=== PATIENT | male | born 1975 | race Caucasian/White ===

== ENCOUNTER 2021-12-21 01:05 | Day surgery (SDC) | payer OTHER, SELFPAY ==
[2021-12-08 13:49] VITALS: BMI 32.1
--- NOTE | 2021-12-20 11:29 | PM.HPGS ---
History of Present Illness History of Present Illness Consent: Risks, benefits, and alternatives have been discussed and questions answered. Patient agrees to proceed with procedure. Chief complaint: family hx of colon ca, neoplasm screening Narrative: Rom Gonzáles is a 46 year old male referred for colon cancer screening. He has a family history of colon cancer in his mother. Review of Systems Review of Systems: All systems reviewed & are unremarkable except as noted in HPI and below PMFSH Past Medical History Medical History Allergies Cervicalgia Depression Erectile dysfunction Essential (primary) hypertension Hearing loss History of chicken pox Hypercholesterolemia Family History Family History Sibling Patient's sister is in good health Patient's brother is in good health Mother Carcinoma of colon Father Hypertension Social History Social History Smoking packs per day: 0.5 Smoking cigarettes per day: 10.0 Years smoked: 4 Smoking pack-years: 2.00 Smoking status: Former smoker Tobacco type: cigarettes Smoking end date: 11/18/96 Alcohol intake: current Drinks per week: 2 Substance use: current Substance use type: marijuana Other substance usage details: marijuana daily Living arrangements: with family Spiritual care concerns: No Meds Home Medications and Allergies Home Medications Medication Instructions Recorded Confirmed Type escitalopram oxalate 10 mg tablet 10 mg PO DAILY #30 tablet 11/23/21 12/08/21 Rx sildenafil 50 mg tablet 50 - 100 mg PO DAILY PRN #30 tablet 11/23/21 12/08/21 Rx Allergies Allergy/AdvReac Type Severity Reaction Status Date / Time No Known Allergies Allergy Verified 12/21/21 07:04 Exam Const: General: alert Orientation/consciousness: patient oriented x3 Resp: Auscultation: clear to auscultation bilaterally Cardio: Rhythm: regular rhythm GI: GI Palp: Yes Soft to palpation and No Tenderness to palpation present (GI) Neuro: General: patient oriented x3 Assessment and Plan Assessment and plan (1) Colon cancer screening: Code(s): Z12.11 - Encounter for screening for malignant neoplasm of colon Status: Acute Assessment and Plan: Colonoscopy with possible biopsy or polypectomy or cautery or injection of substances.
[2021-12-21 07:06] VITALS: BP 152/101; PULSE 65; RESP 18; TEMP 36.8; O2SAT 98; BMI 31.3
--- NOTE | 2021-12-21 07:14 | WPDANESEPPF ---
Anes - Initial Pre Proc Eval Procedure: Operation Date: 12/21/21 08:00 Proposed Procedures p Screening Colonoscopy - Cesar Ricketts MD Date/Time: 12/21/21 07:14 Surgeon: Cesar Ricketts MD Pre Op Diagnosis: family hx of colon ca, neoplasm screening Patient Data Age: 46 Gender: M Height: 1.8 m Weight: 101.9 kg Last Vital Signs Temp 36.8 C 12/21/21 07:06 Pulse 65 12/21/21 07:06 Resp 18 12/21/21 07:06 BP 152/101 H 12/21/21 07:06 Pulse Ox 98 12/21/21 07:06 Allergies Allergy/AdvReac Type Severity Reaction Status Date / Time No Known Allergies Allergy Verified 12/21/21 07:04 Home Medications Medication Instructions Recorded Confirmed Type escitalopram oxalate 10 mg tablet 10 mg PO DAILY #30 tablet 11/23/21 12/08/21 Rx sildenafil 50 mg tablet 50 - 100 mg PO DAILY PRN #30 tablet 11/23/21 12/08/21 Rx Patient hx anesthesia problems: none Family hx anesthesia problems: none Results Review: All pre-operative results and documents have been reviewed as part of the pre-operative evaluation. [facility] Past Medical History Medical History Allergies Cervicalgia Depression Erectile dysfunction Essential (primary) hypertension Hearing loss History of chicken pox Hypercholesterolemia Family History Family History Sibling Patient's sister is in good health Patient's brother is in good health Mother Carcinoma of colon Father Hypertension Social History Social History Smoking packs per day: 0.5 Smoking cigarettes per day: 10.0 Years smoked: 4 Smoking pack-years: 2.00 Smoking status: Former smoker Tobacco type: cigarettes Smoking end date: 11/18/96 Alcohol intake: current Drinks per week: 2 Substance use: current Substance use type: marijuana Other substance usage details: marijuana daily Living arrangements: with family Spiritual care concerns: No Anes - Eval Final PreProcedure Day of Procedure 12/21/21 07:14 Patient weight: obese Heart: regular rate and rhythm Lungs: clear to auscultation Airway: Mallampati scale Neurological: alert and oriented Last oral intake: >/= 8 hours ASA classification: III Emergent: no Anesthetic plan: proceed Anesthesia type and monitoring: general GIVS and standard monitoring Results Review: All pre-operative results and documents have been reviewed as part of the pre-operative evaluation. Informed Consent: The patient's anesthetic plan and its attendant risks and benefits were discussed with the patient/family/POA. Questions were solicited and answers provided to the satisfaction of the patient/family/POA.
[2021-12-21] MEDS: LACTATED RINGERS 1,000 ML 150 ML IV CONT (07:18)
[2021-12-21 08:15] VITALS: BP 106/62; PULSE 52; RESP 12; O2SAT 97
[2021-12-21 08:25] VITALS: BP 115/80; PULSE 55; RESP 16; O2SAT 98
[2021-12-21 08:35] VITALS: BP 151/90; PULSE 58; RESP 15; O2SAT 99
== END 2021-12-21 08:39 | disposition home or self-care (01) ==
PROVIDERS: PCP Internal Medicine; Visit Provider Internal Medicine Gastroenterology
PROC: 0DJD8ZZ Inspection of Lower Intestinal Tract, Via Natural or Artificial Opening Endoscopic (ICD-10-PCS; CPT 45378; principal; 2021-12-21 08:00)
DX: Z12.11 Encounter for screening for malignant neoplasm of colon (principal); Z80.0 Family history of malignant neoplasm of digestive organs; F32.9 Major depressive disorder, single episode, unspecified; N52.9 Male erectile dysfunction, unspecified; F12.90 Cannabis use, unspecified, uncomplicated; Z87.891 Personal history of nicotine dependence; E66.9 Obesity, unspecified; Z68.31 Body mass index [BMI] 31.0-31.9, adult
CPT/HCPCS: 45378; J2704; J7120

== ENCOUNTER 2022-10-26 09:38 | Outpatient (CLI) | payer OTHER, SELFPAY ==
--- NOTE | 2022-10-26 09:41 | EST_ITS ---
Patient Info Name: Rom Gonzáles Age: 47 years : 1975 Gender: Male Ht: 71 in Wt: 235 lbs BSA: 2.34 m2 Technical Quality: Good Exam Date: 10/26/2022 10:14 AM Exam Location: [facility] Pulmonary Patient Status: Outpatient Admit Date: 10/26/2022 Staff Ordering Physician: Trice Prado Attending Provider: DASHAWN ROBERTO DO Referring Physician: Johan GRANADOS; Exercise Technologist: Lorrie Myers RDCS Exercise Physician: Dashawn Roberto DO Exam Type: CA stress echo Study Info Indications R06.02 - Shortness of breath Treadmill exercise stress echocardiogram is performed. Summary 1. 1. Negative Petey exercise stress test for ischemic ST changes by ECG criteria. 2. 2. Good functional capacity, achieving 11 METs of workload. 3. 3. Appropriate HR response to exercise. 4. 4. Appropriate HR recovery at 1 minute post exercise. 5. 5. Negative stress echocardiogram for ischemia by wall motion analysis. 6. 6. Patient informed of the above results. Stress Echo Findings Left Ventricle Appropriate increase in LV endocardial thickening with systole. Appropriate augmentation of contractility with systole. No wall motion abnormality. Left Ventricle Normal LV systolic function, no wall motion abnormality. Protocol: Petey Stress ECG Details Stage: REST Duration (min): 0 min : 45 sec Speed (mph): 0.0 Grade (%): 0 HR (bpm): 60 SBP (mmHg): 130 DBP (mmHg): 83 METS: --- Stage: REST Duration (min): 14 min : 6 sec Speed (mph): 0.0 Grade (%): 0 HR (bpm): 80 SBP (mmHg): 130 DBP (mmHg): 83 METS: --- Stage: STAGE 1 Duration (min): 1 min : 0 sec Speed (mph): 1.7 Grade (%): 10 HR (bpm): 93 SBP (mmHg): 130 DBP (mmHg): 83 METS: --- Stage: STAGE 1 Duration (min): 2 min : 0 sec Speed (mph): 1.7 Grade (%): 10 HR (bpm): 101 SBP (mmHg): 130 DBP (mmHg): 83 METS: --- Stage: STAGE 1 Duration (min): 3 min : 0 sec Speed (mph): 1.7 Grade (%): 10 HR (bpm): 101 SBP (mmHg): 176 DBP (mmHg): 95 METS: --- Stage: STAGE 2 Duration (min): 1 min : 0 sec Speed (mph): 2.5 Grade (%): 12 HR (bpm): 109 SBP (mmHg): 176 DBP (mmHg): 95 METS: --- Stage: STAGE 2 Duration (min): 2 min : 0 sec Speed (mph): 2.5 Grade (%): 12 HR (bpm): 112 SBP (mmHg): 168 DBP (mmHg): 93 METS: --- Stage: STAGE 2 Duration (min): 3 min : 0 sec Speed (mph): 2.5 Grade (%): 12 HR (bpm): 119 SBP (mmHg): 168 DBP (mmHg): 93 METS: --- Stage: STAGE 3 Duration (min): 1 min : 0 sec Speed (mph): 3.4 Grade (%): 14 HR (bpm): 134 SBP (mmHg): 186 DBP (mmHg): 90 METS: --- Stage: STAGE 3 Duration (min): 2 min : 0 sec Speed (mph): 3.4 Grade (%): 14 HR (bpm): 143 SBP (mmHg): 186 DBP (mmHg): 90 METS: --- Stage: STAGE 3 Duration (min): 3 min : 0 sec Speed (mph): 3.4 Grade (%): 14 HR (bpm): 152
--- NOTE | 2022-11-01 12:25 | WPDHOLTEREM ---
Holter/Event Monitor Holter/Event Monitor Date of procedure: 10/26/22 Holter/Event Procedure: 48 Hr Holter Monitor Indications: Palpitations Conclusion: 1. 48 hour holter monitor on 10/26/22. 2. Underlying rhythm is sinus rhythm. HR range 44-140 bpm; average HR 67 bpm. 3. There are 14 premature supraventricular complexes. No supraventricular tachycardia. 4. There are 51 premature ventricular complexes. No ventricular tachycardia. 5. No sinoatrial or atrioventricular blocks. No significant pauses greater than 2 seconds. 6. Patient reports symptoms of lightheadedness which demonstrate sinus rhythm, HR range 66-70 bpm.
== END 2022-10-26 09:39 | disposition home or self-care (01) ==
LOC: ANHCARD 09:39
PROVIDERS: PCP Internal Medicine; Visit Provider Clinical Nurse Specialist
DX: R06.02 Shortness of breath (principal)
CPT/HCPCS: 93225; 93226; 93351

== ENCOUNTER 2022-11-05 09:46 | Outpatient (CLI) | payer OTHER, SELFPAY ==
[2022-11-05 14:25] LABS: Kit Draw Collected
== END 2022-11-05 09:47 | disposition home or self-care (01) ==
LOC: ANHGOSHLAB 09:48
PROVIDERS: PCP Internal Medicine; Visit Provider Clinical Nurse Specialist
DX: E78.5 Hyperlipidemia, unspecified (principal)
CPT/HCPCS: 36415

== ENCOUNTER 2023-05-07 11:28 | Outpatient (CLI) | payer OTHER, SELFPAY ==
[2023-05-07 14:16] LABS: Kit Draw Collected
== END 2023-05-07 11:29 | disposition home or self-care (01) ==
LOC: ANHGOSHLAB 11:31
PROVIDERS: PCP Internal Medicine; Visit Provider Clinical Nurse Specialist
DX: R73.9 Hyperglycemia, unspecified (principal); I10 Essential (primary) hypertension
CPT/HCPCS: 36415

== ENCOUNTER 2023-11-04 12:13 | Outpatient (CLI) | payer OTHER, SELFPAY ==
--- NOTE | ~2023-11-04 | XR_ITS ---
EXAMINATION: XR lumbar spine 2-3V DATE: 11/04/2023 12:28 INDICATION: Low back pain TECHNIQUE: Anteroposterior and lateral views of the lumbar spine, and cone-down lateral view of the l umbosacral junction were obtained. COMPARISON: None. FINDINGS: Bone alignment is normal. There is no fracture. There is mild loss of intervertebral disc s pace height at L2-3. Small degenerative osteophytes project from the anterior endplates of multiple v ertebral bodies. There is mild facet joint osteoarthritis at L5-S1. The vertebral body heights are ma intained. IMPRESSION: 1. Mild lumbar spondylosis without acute findings. Reviewed, dictated and finalized at location B. [employer]
== END 2023-11-04 12:14 | disposition home or self-care (01) ==
PROVIDERS: PCP Internal Medicine; Visit Provider Clinical Nurse Specialist
DX: M43.06 Spondylolysis, lumbar region (principal)
CPT/HCPCS: 72100

== ENCOUNTER 2023-12-06 14:45 | Outpatient (RCR) | payer OTHER, SELFPAY ==
--- NOTE | 2023-11-22 15:57 | PTOPEVAL1 ---
Assessment and note entered by Rohit Lees, PT Evaluation Information Assessment Status Evaluation Diagnosis Lumbar pain, Cervicalgia Onset 10/25/23 Subjective Information Reports that his cervical spine has hurt him for a long time that has been effective for years. It will occasionally lock up on him. The pain in the low back started about 3 weeks ago to a locking feeling making it difficult to get out of bed. It has worsened since then. He had to lay supine to relieve his pain. Compression and twisting have really hurt him. Reported Pain Level Pain Score 0: Self Report Assessment PT Clinical Summary Patient presents with signs and symptoms consistent with discogenic cervical and lumbar pain. Patient was implemented with extension based exercise coupled with hip mobility to improve posture and promote mobilization outside of daily routine. Plan of Care Interventions Manual Therapy,Neuro Re-education,Therapeutic Activities,Therapeutic Exercise PT Services Indicated Yes Treatment Frequency and Follow up in 2 weeks reassess progress Duration These treatments will address the objective and functional deficits as defined above. The patient will be advanced safely and appropriately in order for the patient to progress towards his/her prior level of function. Additional exercises will be introduced and as well as a comprehensive home exercise program upon discharge, if needed, ?to ensure carryover of functional gains achieved in the clinic. This treatment plan has been reviewed and agreement upon by the patient.
--- NOTE | 2023-11-22 15:57 | OPREHPOC ---
Outpatient Therapy Plan of Care This is a Multidisciplinary Plan of Care that may contain components documented by all disciplines (PT, OT, and ST.) PT Problem 1 PT Problem #1 Knowledge Deficit PT Goal 1 Goal [place] with HEP Target Visit 2 PT Problem 2 PT Problem #2 Pain PT Goal 1 Goal Continue to report no pain after work related actvity fro 1 hour Target Visit 2
--- NOTE | 2023-12-06 15:30 | OPREHPOC ---
Outpatient Therapy Plan of Care This is a Multidisciplinary Plan of Care that may contain components documented by all disciplines (PT, OT, and ST.) PT Problem 1 PT Problem #1 Knowledge Deficit PT Goal 1 Goal [place] with HEP Target Visit 2 Progress Met PT Problem 2 PT Problem #2 Pain PT Goal 1 Goal Continue to report no pain after work related actvity fro 1 hour Target Visit 2 Progress Met
--- NOTE | 2023-12-06 15:30 | PTOPDC ---
Assessment and note entered by Rohit Lees, PT Evaluation Information Assessment Status Discharge Diagnosis Lumbar pain, Cervicalgia Onset 10/25/23 Subjective Information Reports that he feels comfortable with current HEP . No concerns at this time. Would like to continue to emphasize postural strength and reinforcement at home. Reported Pain Level Pain Score 0: Self Report Assessment PT Clinical Summary Patient presents with compliance and understanding with HEP at this time. We added new exercises emphasizing periscapular strength. Suitable for discharge at this time to HEP. Plan of Care PT Services Indicated Yes
== END 2023-12-06 15:55 | disposition home or self-care (01) ==
LOC: ANHGOSHPT 14:45
PROVIDERS: PCP Internal Medicine; Visit Provider Clinical Nurse Specialist
DX: M54.50 Low back pain, unspecified (principal); M54.2 Cervicalgia
CPT/HCPCS: 97110; 97161; 97530